=== PATIENT | male | born 1980 | race Hispanic/Latino ===

== ENCOUNTER 2016-12-31 17:47 | Emergency (ER) | payer OTHER ==
[2016-12-31 18:02] VITALS: BMI 25.0
[2016-12-31 18:03] VITALS: BP 169/108; PULSE 69; RESP 18; TEMP 98.2; O2SAT 99
--- NOTE | 2016-12-31 18:29 | C.PDOC ---
History Of Present Illness 36 yo male w/PMHx of HTN, migraine, come in for evaluation of gradual onset of diffuse lower back pain for past week " after picked up heavy boxes at work". Pt admits, pain is localized over lower back, non-radiating and worse with movement, sitting. Otherwise, pt denies fever, chills, headache, dizziness, visual changes, focal deficits, neck pain, CP, SOB, dyspnea, abd. pain, N/V/D, UTi sx, saddle anesthesia, incontinence, denies weakness,sensory or vascular deficits to B/L LEs. Ambulate to ED for evaluation, not in any apparent distress. Time Seen by Provider: 12/31/16 18:13 Chief Complaint (Nursing): Back Pain History Per: Patient History/Exam Limitations: no limitations Onset/Duration Of Symptoms: Persistent (Past week.) Past Medical History Reviewed: Historical Data, Nursing Documentation, Vital Signs Vital Signs: Last Vital Signs Temp 98.2 F 12/31/16 18:02 Pulse 69 12/31/16 18:02 Resp 18 12/31/16 18:02 BP 169/108 H 12/31/16 18:02 Pulse Ox 99 12/31/16 18:54 - Medical History PMH: HTN, Migraine Family History: States: No Known Family Hx - Social History Hx Tobacco Use: No Hx Alcohol Use: No Hx Substance Use: No - Immunization History Hx Tetanus Toxoid Vaccination: No Hx Influenza Vaccination: No Hx Pneumococcal Vaccination: No Review Of Systems Except As Marked, All Systems Reviewed And Found Negative. Constitutional: Negative for: Fever, Chills Eyes: Negative for: Vision Change Cardiovascular: Negative for: Chest Pain Gastrointestinal: Negative for: Nausea, Vomiting, Abdominal Pain, Diarrhea Genitourinary: Negative for: Incontinence Musculoskeletal: Positive for: Back Pain (Diffuse lower back pain ), Other (No saddle anesthesia ). Negative for: Neck Pain Neurological: Negative for: Headache, Dizziness Physical Exam - Physical Exam Appears: Well, Non-toxic, No Acute Distress Skin: Normal Color, Warm, Dry, No Rash Eye(s): bilateral: Normal Inspection Nose: Normal, No Discharge Oral Mucosa: Moist Throat: Normal Neck: Normal, Normal ROM, Supple Cardiovascular: Rhythm Regular Respiratory: Normal Breath Sounds, No Stridor, No Wheezing Gastrointestinal/Abdominal: Normal Exam, Soft, No Tenderness, No Distention, No Guarding Back: Normal Inspection, No CVA Tenderness, No Vertebral Tenderness, Decreased ROM (L-spine to bend forward due to pain.), Paraspinal Tenderness (diffuse lumbar paraspinal tenderness. No midline tenderness, no skin changes.), No Straight Leg Raising Extremity: Normal ROM, No Pedal Edema, No Deformity Neurological/Psych: Oriented x3, Normal Speech, Normal Motor, Normal Sensation, Normal Reflexes ED Course And Treatment O2 Sat by Pulse Oximetry: 99 Pulse Ox Interpretation: Normal Progress Note: On re-evaluation, pt is afebrile, hemodynamicaly stable. Non- toxic. AMbulatory in ED with stable gait. HTN noted on triage, pt admits compliant with medication, dneies any associated sx. Neck: (-) meningeals ign. Lungs: CTA B/L, BS equal B/L. Abd: benign. Neurologicaly intact. Pt has clinical findings c/w lower back strain, HTN. Pt advised. ref. to f/u with PMD and PM in 2-3 days for re-eval. return if any new changes. Disposition Counseled Patient/Family Regarding: Diagnosis, Need For Followup, Rx Given - Disposition Referrals: [facility] [Outside] Disposition: HOME/ ROUTINE Disposition Time: 18:26 Condition: STABLE Additional Instructions: Bedrest for 2-3 days No physical activity for 1 week Take medication as need for pain Follow up with PMD In 2-3 days for re-evaluation. Return to ED if any worsening or new changes. 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 - Scribe Statement The provider has reviewed the documentation as recorded by the Scribe Sanam Harris All medical record entries made by the Scribe were at my direction and personally dictated by me. I have reviewed the chart and agree that the record accurately reflects my personal performance of the history, physical exam, medical decision making, and the department course for this patient. I have also personally directed, reviewed, and agree with the discharge instructions and disposition.
== END 2016-12-31 18:38 | disposition home or self-care (01) ==
LOC: C.ER 17:47
DX: S33.5XXA Sprain of ligaments of lumbar spine, initial encounter (principal); X50.0XXA Overexertion from strenuous movement or load, initial encounter; Y93.89 Activity, other specified; Y92.89 Other specified places as the place of occurrence of the external cause; Y99.0 Civilian activity done for income or pay

== ENCOUNTER 2017-08-20 09:53 | Emergency (ER) | payer OTHER ==
[2017-08-20 09:53] VITALS: BMI 25.0
[2017-08-20] MEDS ORDERED: Apap-Butalbital-Caffeine 325-50-40mg Tab PO STA (10:23)
[2017-08-20] MEDS ORDERED: Apap-Butalbital-Caffeine 325-50-40mg Tab ONE (10:27)
[2017-08-20 11:08] VITALS: O2SAT 99
--- NOTE | 2017-08-20 11:16 | C.PDOC ---
History Of Present Illness 37 y/o male with PMH HTN and Migraines presents to ED with complaints of pressure-like headache since yesterday. Patient states his blood pressure was high yesterday and took a 2nd dose of Norvasc. Today blood pressure was high again took dose of Norvasc, and continues with headache which prompted visit to ED. Patient admits he has been eating a lot of fast food and been stressed which may be cause of high blood pressure. Patient denies vision changes, weakness, numbness, nausea, vomiting or any other complaints at this time. Time Seen by Provider: 08/20/17 10:04 Chief Complaint (Nursing): Headache History Per: Patient History/Exam Limitations: no limitations Onset/Duration Of Symptoms: Days Current Symptoms Are (Timing): Still Present Quality: Pressure Associated Symptoms: denies: Photophobia, Blurred Vision, Nausea, Vomiting, Extremity Weakness Past Medical History Reviewed: Historical Data, Nursing Documentation, Vital Signs Vital Signs: Last Vital Signs Temp 98.7 F 08/20/17 11:34 Pulse 76 08/20/17 11:34 Resp 18 08/20/17 11:34 BP 149/98 H 08/20/17 11:34 Pulse Ox 99 08/20/17 11:35 - Medical History PMH: HTN, Migraine Surgical History: No Surg Hx Family History: States: No Known Family Hx - Social History Hx Tobacco Use: No Hx Alcohol Use: Yes Hx Substance Use: No - Immunization History Hx Tetanus Toxoid Vaccination: No Hx Influenza Vaccination: Yes Hx Pneumococcal Vaccination: No Review Of Systems Constitutional: Negative for: Fever, Chills Eyes: Negative for: Vision Change Cardiovascular: Negative for: Chest Pain, Palpitations Respiratory: Negative for: Cough, Shortness of Breath Gastrointestinal: Negative for: Nausea, Vomiting Skin: Negative for: Rash Neurological: Positive for: Headache. Negative for: Weakness, Numbness, Confusion, Dizziness Physical Exam - Physical Exam Appears: Non-toxic, No Acute Distress, Other (comfortable) Skin: Warm, Dry, No Rash Head: Normacephalic Eye(s): bilateral: Normal Inspection (no photophobia, no nystagmus), PERRL, EOMI Oral Mucosa: Moist Neck: Normal ROM, Supple Chest: Symmetrical Cardiovascular: Rhythm Regular Respiratory: Normal Breath Sounds, No Rales, No Rhonchi, No Wheezing Gastrointestinal/Abdominal: Soft, No Tenderness, No Guarding, No Rebound Extremity: Bilateral: Atraumatic, Normal Color And Temperature, Normal ROM Neurological/Psych: Oriented x3, Normal Speech, Normal Cranial Nerves, No Cerebellar Signs, Normal Motor, Normal Sensation Gait: Steady ED Course And Treatment O2 Sat by Pulse Oximetry: 99 (RA) Pulse Ox Interpretation: Normal Medical Decision Making Medical Decision Making: Impression: Headache, HTN Plan: Reglan, Fioricet re-eval: patient reports feeling better headache has mostly resolved. BP has no improved. Patient has no fever, and no neuro deficits. Disposition Counseled Patient/Family Regarding: Diagnosis, Need For Followup, Rx Given - Disposition Referrals: Rj Gresham MD [Staff Provider] - Disposition: HOME/ ROUTINE Disposition Time: 11:33 Condition: STABLE Additional Instructions: Follow up with your primary medical doctor or clinic in 2-5 days for further evaluation. Take medications as prescribed. Return to the emergency department at any time if symptoms persist or worsen. 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 - Scribe Statement The provider has reviewed the documentation as recorded by the Avelibchristin Chacon All medical record entries made by the Avelibchristin were at my direction and personally dictated by me. I have reviewed the chart and agree that the record accurately reflects my personal performance of the history, physical exam, medical decision making, and the department course for this patient. I have also personally directed, reviewed, and agree with the discharge instructions and disposition.
[2017-08-20 11:52] VITALS: BP 149/98; PULSE 76; RESP 18; TEMP 98.7
== END 2017-08-20 11:57 | disposition home or self-care (01) ==
LOC: C.ER 09:53
DX: R51 Headache (principal); I10 Essential (primary) hypertension

== ENCOUNTER 2018-02-13 07:16 | Emergency (ER) | payer OTHER ==
[2018-02-13 07:16] VITALS: BMI 25.0
[2018-02-13 07:21] VITALS: O2SAT 100
[2018-02-13] MEDS ORDERED: Sodium Chloride 0.9% 1,000 ML IV STA (08:05)
[2018-02-13] MEDS ORDERED: Sodium Chloride 0.9% 1,000 ML ONE (08:20)
--- NOTE | 2018-02-13 08:47 | CT ---
PROCEDURE: CT HEAD WITHOUT CONTRAST. HISTORY: Severe headache COMPARISON: CT head dated 08/18/2014. TECHNIQUE: Axial computed tomography images were obtained through the head/brain without intravenous contrast. Radiation dose: Total exam DLP = 1083.1 mGy-cm. This CT exam was performed using one or more of the following dose reduction techniques: Automated exposure control, adjustment of the mA and/or kV according to patient size, and/or use of iterative reconstruction technique. FINDINGS: HEMORRHAGE: No intracranial hemorrhage. BRAIN: No mass effect or edema. No atrophy or chronic microvascular ischemic changes. VENTRICLES: Unremarkable. No hydrocephalus. CALVARIUM: Unremarkable. PARANASAL SINUSES: Unremarkable as visualized. No significant inflammatory changes. MASTOID AIR CELLS: Unremarkable as visualized. No inflammatory changes. OTHER FINDINGS: None. IMPRESSION: Normal CT of the Head.
--- NOTE | 2018-02-13 09:38 | C.PDOC ---
History Of Present Illness 38 year old male with a history of migraines presents to the emergency department with complaints of a headache. Patient states that his headache is currently different from his usual headaches. He sts his headache usually located in his posterior head, and currently he is feeling a headache in his temples. Patient denies nausea, vomiting, fever, photophobia, visual changes or dizziness. Patient denies any head injuries. Time Seen by Provider: 02/13/18 07:52 Chief Complaint (Nursing): Headache History Per: Patient History/Exam Limitations: no limitations Current Symptoms Are (Timing): Still Present Quality: Aching Associated Symptoms: denies: Photophobia, Nausea, Vomiting, Other (dizziness) Past Medical History Reviewed: Historical Data, Nursing Documentation, Vital Signs Vital Signs: Last Vital Signs Temp 97.6 F 02/13/18 09:45 Pulse 70 02/13/18 09:45 Resp 16 02/13/18 09:45 BP 137/86 02/13/18 09:45 Pulse Ox 100 02/13/18 11:41 - Medical History PMH: HTN, Migraine Surgical History: No Surg Hx Family History: States: No Known Family Hx - Social History Hx Tobacco Use: No Hx Alcohol Use: No Hx Substance Use: No - Immunization History Hx Tetanus Toxoid Vaccination: Yes Hx Influenza Vaccination: Yes Hx Pneumococcal Vaccination: No Review Of Systems Except As Marked, All Systems Reviewed And Found Negative. Eyes: Negative for: Vision Change, Other (photophobia) Gastrointestinal: Negative for: Nausea, Vomiting, Diarrhea Neurological: Positive for: Headache. Negative for: Dizziness Physical Exam - Physical Exam Appears: Non-toxic, No Acute Distress Skin: Normal Color, Warm Head: Atraumatic, Normacephalic Eye(s): bilateral: Normal Inspection, PERRL, EOMI Throat: No Erythema, No Exudate Neck: Normal ROM, Supple Chest: Symmetrical, No Tenderness Cardiovascular: Rhythm Regular Respiratory: Normal Breath Sounds Gastrointestinal/Abdominal: Soft, No Tenderness Extremity: Normal ROM, No Pedal Edema Neurological/Psych: Oriented x3, Normal Speech, Normal Cognition, Normal Cranial Nerves, Normal Motor, Normal Sensation, Normal Reflexes ED Course And Treatment O2 Sat by Pulse Oximetry: 100 (RA) Pulse Ox Interpretation: Normal - Radiology Nexus Criteria: . Focal Neuro Deficit - CT Scan/US Head w/o Contrast Other Rad Studies (CT/US): Read By Radiologist, Radiology Report Reviewed CT/US Interpretation: PROCEDURE: CT HEAD WITHOUT CONTRAST. HISTORY: Severe headache. COMPARISON: CT head dated 08/18/2014. TECHNIQUE: Axial computed tomography images were obtained through the head/brain without intravenous contrast. Radiation dose: Total exam DLP = 1083.1 mGy-cm. This CT exam was performed using one or more of the following dose reduction techniques: Automated exposure control, adjustment of the mA and/or kV according to patient size, and/or use of iterative reconstruction technique. FINDINGS: HEMORRHAGE: No intracranial hemorrhage. BRAIN: No mass effect or edema. No atrophy or chronic microvascular ischemic changes. VENTRICLES: Unremarkable. No hydrocephalus. CALVARIUM: Unremarkable. PARANASAL SINUSES: Unremarkable as visualized. No significant inflammatory changes. MASTOID AIR CELLS: Unremarkable as visualized. No inflammatory changes. OTHER FINDINGS: None. IMPRESSION: Normal CT of the Head. Progress Note: Plan: CT Head w/o Contrast. Glucose POC. Reglan 10mg IVPB. NS IV Fluids. On re-evaluation patient feels better, no longer c/o headache and is stable to be d/c home with PMD and Neurologist follow up. Disposition - Disposition Referrals: Beltran Frances MD [Staff Provider] - Disposition: HOME/ ROUTINE Disposition Time: 09:36 Condition: STABLE Additional Instructions: Follow up with PMD and Neurologist within 1-2 days. Return to ED if feel worse. Returnto ED if feel worse. 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 - Scribe Statement The provider has reviewed the documentation as recorded by the Scribe (Thaddeus Valdez) All medical record entries made by the Scribe were at my direction and personally dictated by me. I have reviewed the chart and agree that the record accurately reflects my personal performance of the history, physical exam, medical decision making, and the department course for this patient. I have also personally directed, reviewed, and agree with the discharge instructions and disposition.
[2018-02-13 09:46] VITALS: BP 137/86; PULSE 70; RESP 16; TEMP 97.6
== END 2018-02-13 09:53 | disposition home or self-care (01) ==
LOC: C.ER 07:16
DX: R51 Headache (principal); I10 Essential (primary) hypertension
CPT/HCPCS: 70450; 82948; 96374; 99285; J2765; J7040

== ENCOUNTER 2018-12-01 19:23 | Emergency (ER) | payer OTHER ==
[2018-12-01 19:23] VITALS: BMI 25.0
[2018-12-01 19:38] VITALS: BP 147/96; PULSE 74; TEMP 98.6; O2SAT 100
[2018-12-01] MEDS ORDERED: Apap-Butalbital-Caffeine 325-50-40mg Tab PO STA (19:44)
[2018-12-01] MEDS ORDERED: Apap-Butalbital-Caffeine 325-50-40mg Tab ONE (19:51)
--- NOTE | 2018-12-01 20:31 | C.PDOC ---
History Of Present Illness 38 y/o male comes in to ED for headache, associated with nausea since this morning. Patient reports he took motrin twice without relief. Patient has PMHx of migraines and states this current headache feels similar. Patient admits to light sensitivity. Otherwise he has no other complaints. Time Seen by Provider: 12/01/18 19:34 Chief Complaint (Nursing): Headache History Per: Patient History/Exam Limitations: no limitations Onset/Duration Of Symptoms: Hrs Current Symptoms Are (Timing): Still Present Past Medical History Reviewed: Historical Data, Nursing Documentation, Vital Signs Vital Signs: Last Vital Signs Temp 98.6 F 12/01/18 19:33 Pulse 74 12/01/18 19:33 Resp 16 12/01/18 19:33 BP 147/96 H 12/01/18 19:33 Pulse Ox 100 12/01/18 19:33 - Medical History PMH: HTN, Migraine Family History: States: No Known Family Hx - Social History Hx Tobacco Use: No Hx Alcohol Use: No Hx Substance Use: No - Immunization History Hx Tetanus Toxoid Vaccination: Yes Hx Influenza Vaccination: Yes Hx Pneumococcal Vaccination: No Review Of Systems Constitutional: Negative for: Fever, Chills Gastrointestinal: Positive for: Nausea. Negative for: Vomiting, Abdominal Pain, Diarrhea Neurological: Positive for: Headache. Negative for: Dizziness Physical Exam - Physical Exam Appears: Non-toxic, In Acute Distress (mild) Skin: Warm, Dry Head: Atraumatic, Normacephalic Eye(s): bilateral: EOMI Oral Mucosa: Moist Neck: No Midline Cervical Tenderness, Supple Cardiovascular: Rhythm Regular, No Murmur Respiratory: Normal Breath Sounds, No Rales, No Rhonchi, No Wheezing Extremity: Bilateral: Atraumatic, Normal Color And Temperature, Normal ROM Neurological/Psych: Oriented x3, Normal Speech, Other (no focal deficits) ED Course And Treatment O2 Sat by Pulse Oximetry: 100 (RA) Pulse Ox Interpretation: Normal Progress Note: Patient was given fioricet and will be discharged home. Patient is to follow up with PMD/clinic in 1-2 days. Disposition Counseled Patient/Family Regarding: Diagnosis, Need For Followup, Rx Given - Disposition Referrals: Carole Gutiérrez MD [Medical Doctor] - Disposition: HOME/ ROUTINE Disposition Time: 20:30 Condition: STABLE Additional Instructions: FOLLOW UP WITH YOUR DOCTOR IN 1-2 DAYS USE MEDICATION NEEDED RETURN TO ER IF SYMPTOMS WORSEN Prescriptions: Acetaminophen/Butalbital/Caf [Fioricet] 1 tab PO TID PRN #20 tab PRN Reason: Headache Instructions: Migraine Headache (DC) Forms: [employer] (Setswana), Work Excuse Print Language: GERMAN - Clinical Impression Clinical Impression: Migraine - Scribe Statement The provider has reviewed the documentation as recorded by the Avelibchristin Acosta Provider Attestation: All medical record entries made by the Bhavani were at my direction and personally dictated by me. I have reviewed the chart and agree that the record accurately reflects my personal performance of the history, physical exam, medical decision making, and the department course for this patient. I have also personally directed, reviewed, and agree with the discharge instructions and disposition.
[2018-12-01 20:45] VITALS: RESP 18
== END 2018-12-01 20:45 | disposition home or self-care (01) ==
LOC: C.ER 19:23
DX: G43.909 Migraine, unspecified, not intractable, without status migrainosus (principal); I10 Essential (primary) hypertension